=== PATIENT | female | born 1965 | race Caucasian/White ===

== ENCOUNTER → 2020-07-11 | Outpatient (CLI) | payer BC, OTHER ==
[~2020-07-11] MED LIST: ALLEGRA ALLERG180 MG PO; NAPROXEN500 MG PO; NASALIDE INH SO25 ML; OMEPRAZOLE20 M1 PO; SYNTHROID88 MCG PO; VITAMIN B PO; VITAMIN D PO
== END ==
LOC: RAD 09:26
DX: R05 Cough (principal); R91.8 Other nonspecific abnormal finding of lung field
CPT/HCPCS: 71046

== ENCOUNTER → 2020-08-01 | Outpatient (CLI) | payer BC, OTHER | LOC: KOH-I 15:07 | DX: M54.5 Low back pain (principal) | CPT/HCPCS: 72100 ==

== ENCOUNTER → 2020-12-01 | Outpatient (CLI) | payer BC | LOC: MAMO 14:28 | DX: Z12.31 Encounter for screening mammogram for malignant neoplasm of breast (principal) | CPT/HCPCS: 77063; 77067 ==

== ENCOUNTER → 2021-01-19 | Outpatient (CLI) | payer BC | LOC: EXRD 13:53 | DX: R07.9 Chest pain, unspecified (principal) | CPT/HCPCS: 71046 ==

== ENCOUNTER → 2021-04-21 | Outpatient (CLI) | payer BC | LOC: KOH-I 10:30 | DX: J01.81 Other acute recurrent sinusitis (principal) | CPT/HCPCS: 70486 ==